=== PATIENT | female | born 1955 | race Caucasian/White ===

== ENCOUNTER 2021-04-30 14:52 | Emergency (ER) | payer MEDICARE, OTHER ==
--- NOTE | 2021-04-30 16:00 | ED Physician Documentation ---
PD HPI LOWER EXT INJURY - Stated complaint Stated Complaint: R ANKLE INJ - Chief complaint Chief Complaint: Trauma Ext - History obtained from History obtained from: Patient - History of Present Illness PD HPI LOW EXT INJURY LOCATION: Right, Ankle Type of injury: Twist (she was walking dog at [employer] and it pushed into her, causing inversion of ankle forcefully. Pain and snap at ankle and was angulated. She states medics straightened it for splinting. Denies other injury.) Where injury occurred: [place] Timing - onset: How many hours ago (1), Today Timing - details: Abrupt onset, Still present Improved by: Immobilization Worsened by: Moving, Palpating Associated symptoms: Swelling (has developed some swelling to it already.). No: Weakness, Numbness Contributing factors: No: Anticoagulated, Prior ortho surgery Similar symptoms before: Has not had sx before Recently seen: Not recently seen Review of Systems Constitutional: denies: Fever, Chills Nose: denies: Rhinorrhea / runny nose, Congestion Throat: denies: Sore throat Respiratory: denies: Cough Skin: denies: Abrasion (s), Laceration (s) Musculoskeletal: reports: Joint pain, Joint swelling (right ankle) Neurologic: denies: Focal weakness, Numbness PD PAST MEDICAL HISTORY - Past Medical History Cardiovascular: None Respiratory: None Neuro: None Endocrine/Autoimmune: None Musculoskeletal: None - Present Medications Home Medications: Ambulatory Orders Medication Instructions Recorded Confirmed HYDROcod/ACETAM 5/325 [Donovan 5/325] 1 ea PO Q6H PRN #18 tablet 04/30/21 Ibuprofen [Motrin] 600 mg PO TID PRN #25 tab 04/30/21 - Allergies Allergies/Adverse Reactions: Allergies Allergy/AdvReac Type Severity Reaction Status Date / Time No Known Drug Allergies Allergy Verified 04/30/21 14:57 PD ED PE NORMAL - Vitals Vital signs reviewed: Yes - General General: Alert and oriented X 3, No acute distress (not in distress, but does show pain response when ankle moves a little bit. BABS splint posteriorly on right splint. ), Well developed/nourished - HEENT HEENT: Atraumatic - Neck Neck: Supple, no meningeal sign, No bony TTP - Back Back: No spinal TTP - Derm Derm: Normal color, Warm and dry - Extremities Extremities: Other (right ankle with moderate swelling all around. Tender diffusely. Normal DP pulse and cap refill toes. Normal sensation and movement of toes. ) - Neuro Neuro: Alert and oriented X 3, No motor deficit, No sensory deficit, Normal speech Results - Vitals Vitals: Vital Signs - 24 hr 04/30/21 04/30/21 14:57 17:49 Temperature 36.5 C 36.5 C Heart Rate 81 80 Respiratory 16 16 Rate Blood Pressure 138/61 H 130/60 O2 Saturation 98 99 Oxygen O2 Source Room air - Rads (name of study) right ankle Radiology: Prelim report reviewed (trimalleolar fracture. Not dislocated. ), See rad report Procedures - Splint (location) right ankle Splint applied by: Tech Type of splint: Fiberglass, Posterior, Stirrup Other: Patient tolerated well, No complications, Neurovascular intact, Good alignment, Crutches provided PD MEDICAL DECISION MAKING - ED course Complexity details: reviewed results, re-evaluated patient, d/w data quality consultant (s/w Dr. Siddiqi who will see patient next week, Monday or Monday. Patient to call early Monday for appt time. ) Departure - Departure Disposition: Home, Self Care Clinical Impression: Trimalleolar fracture Qualifiers: Encounter type: initial encounter Fracture type: closed Laterality: right Qualified Code(s): S82.851A - Displaced trimalleolar fracture of right lower leg, initial encounter for closed fracture Condition: Stable Record reviewed to determine appropriate education?: Yes Instructions: ED Fx Ankle General Follow-Up: Ry Siddiqi MD [Provider Admit Priv/Credential] - Prescriptions: Ibuprofen [Motrin] 600 mg PO TID PRN #25 tab PRN Reason: Pain HYDROcod/ACETAM 5/325 [Donovan 5/325] 1 ea PO Q6H PRN #18 tablet PRN Reason: Pain Comments: Keep the splint in place and elevate ice and rest the ankle often to reduce swelling over the next several days. Crutches as for nonweightbearing. Call Dr. Siddiqi, orthopedics, Monday for an appointment. Tell them you were in the ER with an ankle fracture and Dr. Macias wants to see you early in the week, perhaps Monday or Monday. At that point they will reassess your splint and see if the swelling is down enough for changing the splint or cast and also discussed surgical options. Consider some anti-inflammatory such as ibuprofen or naproxen 3 times a day day over the next several days to week. Take with food. To that add Tylenol every 4-6 hours if needed for pain. Add hydrocodone every 4-6 hours if needed for worse pain. I transmitted your prescriptions to the pharmacy. I am prescribing a short course of narcotic pain medication for you. These are potentially dangerous and addictive medications that should be used carefully. These medications may constipate you. Take an qydk-mrx-acrmfeo stool softener such as docusate twice daily with plenty of water while taking these medications. If you go 24 hours without a bowel movement, take oxzj-wjb-[id number] MiraLAX, per package instructions. Do not drink or drive while taking these medications. If you received narcotic or sedating medications while in the emergency department do not drive for 24 hours. Store this medication in a safe, secure place and out of reach of children. It is a violation of federal law to give or sell this medication to another person or to use in a manner other than prescribed. The ED will not refill narcotic prescriptions, including prescriptions lost or stolen. You can dispose of unwanted medications at the [facility]'s office or at several pharmacies such as [facility]. Discharge Date/Time: 04/30/21 17:49
[2021-04-30] MEDS ORDERED: ACETAMINOPHEN 325 MG TABLET PO STA (16:30)
[2021-04-30] MEDS ORDERED: KETOROLAC 30 MG/ML VIAL IM STA (16:30)
--- NOTE | 2021-04-30 17:07 | XRAY Report ---
PROCEDURE: Ankle 3 View RT INDICATIONS: pain, fall TECHNIQUE: 3 views of the ankle were acquired. COMPARISON: None FINDINGS: Displaced and significantly distracted fracture of the medial malleolus extending into the mortise. Displaced, angulated, comminuted fracture of the distal fibular diaphysis and metadiaphysis extending into the tibial-fibular syndesmosis. Moderate sized ankle joint effusion. IMPRESSION: Fractures of the medial malleolus and distal fibula with intraocular and syndesmotic extension. Ortho pedic consultation recommended. Reviewed by: Mckinley Nolen MD on 04/30/2021 5:06 PM PST Approved by: Mckinley Nolen MD on 04/30/2021 5:06 PM PST Station ID: [id number]
[2021-04-30 17:50] VITALS: BP 130/60
== END 2021-04-30 17:49 | disposition home or self-care (01) ==
LOC: ED 14:52
DX: S82.851A Displaced trimalleolar fracture of right lower leg, initial encounter for closed fracture (principal); X50.1XXA Overexertion from prolonged static or awkward postures, initial encounter; Y93.K1 Activity, walking an animal; Y92.830 Public park as the place of occurrence of the external cause
CPT/HCPCS: 29515; 73610; 96372; 99283; A9270

== ENCOUNTER 2021-05-05 10:33 | Day surgery (SDC) | payer MEDICARE ==
[~2021-05-05 10:33] MED LIST: LIDOCAINE-MPF 2% 5 ML VIAL ONE; MIDAZOLAM 2 MG/2 ML VIAL ONE; PROPOFOL 200 MG/20 ML VIAL IVP ONE; fentaNYL 100 MCG/2 ML VIAL ONE
[2021-05-05] MEDS ORDERED: ROPIVACAINE 0.5% PF 20 ML AMPULE ONE (10:35)
[2021-05-05] MEDS ORDERED: TRANEXAMIC ACID 1,000 MG/10 ML VIAL ONE (10:40)
[2021-05-05] MEDS ORDERED: ACETAMINOPHEN 1,000 MG/100 ML 100 ML IV ONE (10:42)
[2021-05-05] MEDS ORDERED: CEFAZOLIN SODIUM IN 0.9 % NACL 2 GM/100 ML BAG IV ONE (10:42)
[2021-05-05] MEDS ORDERED: CELECOXIB 100 MG CAPSULE PO ONE (10:43)
[2021-05-05] MEDS ORDERED: LACTATED RINGERS 1,000 ML IV ONE ×2 (10:45→13:18)
[2021-05-05] MEDS ORDERED: oxyCODONE 5 MG TABLET PO PRN (11:19)
[2021-05-05] MEDS ORDERED: ATROPINE ABBOJECT 1 MG/10 ML SYRINGE IVP PRN (11:42)
[2021-05-05] MEDS ORDERED: ePHEDrine 50 MG/ML VIAL IVP PRN (11:42)
[2021-05-05] MEDS ORDERED: fentaNYL 100 MCG/2 ML VIAL IVP PRN (11:42)
[2021-05-05] MEDS ORDERED: NALOXONE 0.4 MG/ML VIAL IVP PRN (11:42)
[2021-05-05] MEDS ORDERED: METOCLOPRAMIDE 10 MG/2 ML VIAL IVP PRN (11:42)
[2021-05-05] MEDS ORDERED: ONDANSETRON 4 MG/2 ML VIAL IVP PRN (11:42)
[2021-05-05] MEDS ORDERED: MORPHINE 2 MG/ML CARPUJECT IVP PRN (11:42)
[2021-05-05] MEDS ORDERED: HYDROmorphone 0.5 MG/0.5 ML SYRINGE IVP PRN (11:42)
--- NOTE | 2021-05-05 11:42 | ANESTHESIA ---
Pre-Anesthesia VS, & Labs - Diagnosis R disal fibula fx - Procedure ORIF R distal fibula Vital Signs: Temp Pulse Resp BP Pulse Ox 36.4 C L 86 16 128/65 97 05/05/21 10:51 05/05/21 10:51 05/05/21 10:51 05/05/21 10:51 05/05/21 10:51 Height: 5 ft 4 in Weight (kg): 64 kg Body Mass Index: 24.2 BMI Classification: Healthy weight - NPO >8 hours - Is Patient ?: No - Lab Results Current Lab Results: Laboratory Tests 05/05/21 11:13: POC Whole Bld Glucose 96 Home Medications and Allergies Active Medications Oxycodone HCl (Oxycodone 5 Mg Tablet) 5 mg PO Q4HR PRN PRN Reason: PAIN Allergies/Adverse Reactions: Allergies Allergy/AdvReac Type Severity Reaction Status Date / Time No Known Drug Allergies Allergy Verified 04/30/21 14:57 Anes History & Medical History - Anesthetic History Anesthesia Complications: reports: No previous complications Family history of Anesthesia Complications: Denies Family history of Malignant Hyperthermia: Denies - Medical History Cardiovascular: reports: None Pulmonary: reports: None Gastrointestinal: reports: None Urinary: reports: None Neuro: reports: None Musculoskeletal: reports: None Endocrine/Autoimmune: reports: None Skin: reports: None - Surgical History Eyes Ears Nose Throat (EENT): reports: Tonsil/Adenoidectomy Exam General: Alert, Oriented x3, Cooperative Dental: Dentures full Upper, Dentures full Lower Neck Mobility: Normal Mallampati classification: II Thyromental Distance: 4-6 cm Respiratory: Lungs clear, Normal breath sounds, No respiratory distress Cardiovascular: Regular rate Neurological: Normal speech Mental/Cognitive Status: Alert/Oriented X3, Normal for patient Cognitive Status: Within normal limits Plan Anesthesia Type: General, Popliteal Block Regional Block: Per Surgeon's request for Post Op pain control Consent for Procedure(s) Verified and Reviewed: Yes Code Status: Attempt Resuscitation ASA classification: 2-Mild systemic disease Is this case an emergency?: No
[2021-05-05] MEDS ORDERED: LACTATED RINGERS 1,000 ML IV SCH (12:00)
[2021-05-05] MEDS ORDERED: LIDOCAINE 1% 50 ML MDV SUBQ ONE ×2 (12:11)
[2021-05-05] MEDS ORDERED: LIDOCAINE-MPF 1% 30 ML VIAL ONE (12:13)
[2021-05-05] MEDS ORDERED: ONDANSETRON 4 MG/2 ML VIAL ONE ×2 (12:37→13:47)
[2021-05-05] MEDS ORDERED: PROPOFOL 200 MG/20 ML VIAL IVP ONE (12:48)
--- NOTE | 2021-05-05 13:01 | OPERATIVE REPORT ---
Operative Report - General Procedure Date: 05/05/21 Planned Procedure: Open reduction internal fixation right ankle fracture Pre-Op Diagnosis: Displaced, unstable right ankle fracture, trimalleolar, closed Procedure Performed: Open reduction internal fixation lateral malleolusUtilizing Arthrex fibular beni locked distally and proximally. Post Op Diagnosis: Same as preoperative diagnosis - Procedure Note Primary Surgeon: Ry Siddiqi MD Secondary Surgeon: Luis CAVAZOS Anesthesia Provider: Raphael Nicole CRNA Anesthesia Technique: General LMA, Regional block Estimated Blood Loss (mL): 5 Indications: This is a relatively active 65-year-old woman who sustained a closed displaced right ankle fracture when walking her dog at the [employer]. She had a twisting injury associated with the fall. She was seen in the emergency room where a splint was applied, elevation and crutches were recommended. She had follow-up in our office where she was found to have a closed, displaced unstable fracture of the right ankle. The fracture of the lateral malleolus was comminuted and displaced and was at the level of the ankle mortise and slightly more proximal. The medial malleolus fracture was transverse, displaced and was located at the joint line. The posterior malleolar fragment was relatively small, difficult to be certain on the lateral view.The ankle mortise was unstable. Findings: The primary fracture was the fibula and medial malleolus. I did not definitely ascertain a definite posterior malleolus fracture. The ankle mortise was unstable before fixation of right ankle Complications: None - Other Other Information/Narrative: The patient had received a popliteal block to the right leg. She was brought to the operating room and placed in a supine position with the right leg over a foam ramp. A pneumatic tourniquet was applied to the proximal right thigh but was not utilized. A bump was placed beneath the right buttock to facilitate internal rotation of the right leg. The right leg was prepped and draped in a sterile manner in the usual fashion. A timeout procedure was performed by the entire operating room team and all were in agreement. A towel bump was placed just above the ankle to facilitate traction and internal rotation to help reduce the fracture. The Arthrex fibular beni was utilized. An incision was made about a centimeter distal to the tip of the lateral malleolus and was about 1.5 cm in length. A drill guide and a K wire were then inserted from the tip of the lateral malleolus, across the fracture into the proximal fibular canal. The C-arm image intensifier was utilized for biplanar imaging. The C arm had been covered with sterile drape. The fracture and guidepin seem to align. The entry reamer was then utilized 6.2 mm and then the canal reamer with 3.1 and 3.9 mm reamer. The final reamer allowed insertion of a 3.8 mm beni by 130 mm. The guide was attached to the beni and the beni was impacted by hand. I attempted to countersink the end of the beni and the beni tip was verified using a K wire and the guide. 2 K wires were inserted to fixate the distal fragment to allow for some traction utilizing the beni. The bein rotation was set, reduction was held and the proximal locking mechanism was activated to deploy the tines. Distal 2.7 mm locking screws were inserted through stab incisions. There were 2 distal locking screws placed from lateral to medial and one from anterior to posterior. Stressing of the ankle mortise was done with external rotation and there is seem to be intact ankle mortise without widening of the distal syndesmosis. Final x-rays were obtained and show satisfactory alignment of the ankle mortise and fracture. The medial malleolar fracture aligned well and was not addressed surgically. The incisions were closed with interrupted 4- 0 nylon, simple sutures, Xeroform, gauze well-padded short leg fiberglass splint. A minimally invasive procedure was utilized because her history of peripheral vascular disease most likely secondary to many years of cigarette smoking. A physician speech correction assistant was utilized to help with reduction, insertion of internal fixation, wound closure and splint application. She received 2 g of Ancef intravenously and tolerated the procedure well
--- NOTE | 2021-05-05 13:55 | XRAY Report ---
PROCEDURE: OR C-Arm Procedure INDICATIONS: FX FIBULA TECHNIQUE: 2 intraoperative fluoroscopic images of right ankle were obtained. COMPARISON: Ankle radiograph dated 04/30/2021. FINDINGS: Intraoperative fluoroscopic images shows internal fixation of previously noted comminuted distal fibu lar shaft fracture. Fracture of medial malleolus is also noted. Total fluoroscopy time is 28 seconds. IMPRESSION: Fluoroscopy guidance was provided intraoperatively for ORIF of distal fibular shaft. Reviewed by: Moises Grant MD on 05/05/2021 1:54 PM PST Approved by: Moises Grant MD on 05/05/2021 1:54 PM PST Station ID: [id number]
[2021-05-05 14:35] VITALS: BP 126/60
--- NOTE | 2021-05-05 18:13 | ANESTHESIA POST OP EVALUATION ---
Anesthesia Post Eval - Post Anesthesia Eval Vitals: Last Vital Signs Temp 36.7 C 05/05/21 14:34 Pulse 67 05/05/21 14:34 Resp 13 05/05/21 14:34 BP 126/60 05/05/21 14:34 Pulse Ox 100 05/05/21 14:34 CV Function Including HR & BP: Stable Pain Control: Satisfactory Nausea & Vomiting: Negative Mental Status: Baseline Respiratory Status: Airway Patent Hydration Status: Satisfactory Anesthesia Complications: None
== END 2021-05-05 10:34 | disposition home or self-care (01) ==
LOC: SDS 10:33
PROVIDERS: ATTEND Orthopaedic Surgery
DX: S82.851A Displaced trimalleolar fracture of right lower leg, initial encounter for closed fracture (principal); W54.1XXA Struck by dog, initial encounter; X50.1XXA Overexertion from prolonged static or awkward postures, initial encounter; Y92.830 Public park as the place of occurrence of the external cause; I73.9 Peripheral vascular disease, unspecified; Z87.891 Personal history of nicotine dependence
CPT/HCPCS: 27792; C1713; J0131; J0690; J7120

== ENCOUNTER 2021-06-29 07:57 | Outpatient (CLI) | payer MEDICARE ==
--- NOTE | 2021-06-29 17:47 | XRAY Report ---
PROCEDURE: Ankle 3 View RT INDICATIONS: ANKLE FRACTURE TECHNIQUE: 3 views of the ankle were acquired. COMPARISON: 12 since . FINDINGS: Bones: Postsurgical changes compatible with ORIF of distal fibular fracture noted. Intramedullary beni with [address] screws in place. There is near-anatomic alignment following ORIF. Medial malle olus fracture is in near-anatomic alignment. Ankle mortise is normally aligned. No suspicious bony l esions. Soft tissues: No tibiotalar joint effusion. Achilles tendon appears normal. IMPRESSION: Expected postsurgical change for ORIF of distal right fibular fracture. Medial malleolus fracture in near anatomic alignment. Reviewed by: Alba Santos MD, PhD on 06/29/2021 5:46 PM PST Approved by: Alba Santos MD, PhD on 06/29/2021 5:46 PM PST Station ID: [id number]
== END 2021-06-29 07:58 | disposition home or self-care (01) ==
LOC: DI.WOS 07:57
PROVIDERS: ATTEND Physician Assistant
DX: S82.831D Other fracture of upper and lower end of right fibula, subsequent encounter for closed fracture with routine healing (principal); S82.51XD Displaced fracture of medial malleolus of right tibia, subsequent encounter for closed fracture with routine healing

== ENCOUNTER 2021-07-27 08:00 | Outpatient (CLI) | payer MEDICARE ==
--- NOTE | 2021-07-27 17:02 | XRAY Report ---
PROCEDURE: Ankle 3 View RT INDICATIONS: ANKLE ORIF NEW ANTERIOR ANKLE PAIN TECHNIQUE: 3 views of the ankle were acquired. COMPARISON: Right ankle radiographs 06/29/2021, 04/30/2021. FINDINGS: Bones: Distal fibula intramedullary beni and screw fixation is unchanged. Prior malleolar fractures. Stable alignment. No suspicious bony lesions. Soft tissues: Heterogeneous appearance of the soft tissues could be due to edema. No tibiotalar join t effusion. Achilles tendon appears normal. IMPRESSION: Stable appearance of the prior fractures and ORIF. Reviewed by: Bogdan Harris MD on 07/27/2021 4:01 PM MICHELE Approved by: Bogdan Harris MD on 07/27/2021 4:01 PM MICHELE Station ID: [id number]
== END 2021-07-27 23:59 ==
LOC: DI.WOS 08:00
PROVIDERS: ATTEND Physician Assistant
DX: S82.851D Displaced trimalleolar fracture of right lower leg, subsequent encounter for closed fracture with routine healing (principal)

== ENCOUNTER 2021-08-27 06:00 | Outpatient (CLI) | payer MEDICARE ==
--- NOTE | 2021-08-30 14:47 | XRAY Report ---
PROCEDURE: Ankle 3 View RT INDICATIONS: ANKLE FRACTURE TECHNIQUE: 3 views of the ankle were acquired. COMPARISON: 07/27/2021 and 06/29/2021. FINDINGS: Bones: Post-ORIF changes are again seen in distal fibular shaft. No gross hardware loosening or fail ure. Interval further healing at distal fibular shaft fracture site is seen. Old fracture involving m edial malleolus is again seen and unchanged. No new fracture or dislocation. Ankle mortise is normall y aligned. No suspicious bony lesions. Soft tissues: No tibiotalar joint effusion. Achilles tendon appears normal. IMPRESSION: Interval further healing at distal fibular shaft fracture site. Anatomic ankle alignment . Old fracture of medial malleolus. No new fracture or dislocation. Reviewed by: Moises Grant MD on 08/30/2021 2:45 PM PDT Approved by: Moises Grant MD on 08/30/2021 2:45 PM PDT Station ID: [id number]
== END 2021-08-27 23:59 | disposition home or self-care (01) ==
LOC: DI.WOS 06:00
PROVIDERS: ATTEND Physician Assistant
DX: S82.851D Displaced trimalleolar fracture of right lower leg, subsequent encounter for closed fracture with routine healing (principal)

== ENCOUNTER 2021-09-28 06:00 | Outpatient (CLI) | payer MEDICARE ==
--- NOTE | 2021-09-28 18:21 | XRAY Report ---
PROCEDURE: Ankle 3 View RT INDICATIONS: ANKLE FX TECHNIQUE: 3 views of the ankle were acquired. COMPARISON: X-ray ankle 08/27/2021 FINDINGS: Bones: Femoral fixation is present. Hardware is intact without evidence of hardware fracture or perip rosthetic loosening. Fracture lucencies within the fibula remain present, although slightly less prom inent with stable alignment. Ankle mortise is normally aligned. No suspicious bony lesions. Old med ial malleolar fracture. 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 Soft tissues: No tibiotalar joint effusion. Achilles tendon appears normal. IMPRESSION: ORIF of the distal fibula with healing fracture lucencies. Reviewed by: Deya Gonzalez MD on 09/28/2021 6:19 PM PDT Approved by: Deya Gonzalez MD on 09/28/2021 6:19 PM PDT Station ID: [id number]
== END 2021-09-28 23:59 | disposition home or self-care (01) ==
LOC: DI.WOS 06:00
PROVIDERS: ATTEND Physician Assistant
DX: S82.851D Displaced trimalleolar fracture of right lower leg, subsequent encounter for closed fracture with routine healing (principal)

== ENCOUNTER 2023-01-02 08:00 | Outpatient (CLI) | payer MEDICARE | END 2023-01-02 23:59 | disposition home or self-care (01) | LOC: LAB.S 08:00 | PROVIDERS: ATTEND Physician Assistant | DX: R50.9 Fever, unspecified (principal); Z20.822 Contact with and (suspected) exposure to COVID-19 ==

== ENCOUNTER 2023-01-07 08:00 | Outpatient (CLI) | payer MEDICARE ==
--- NOTE | 2023-01-07 20:02 | XRAY Report ---
PROCEDURE: Chest 2 View X-Ray INDICATIONS: FATIGUE TECHNIQUE: 2 views of the chest were acquired. COMPARISON: None. FINDINGS: Surgical changes and devices: None. Lungs and pleura: No pleural effusions or pneumothorax. Lungs are clear, yet hyperexpanded. Mediastinum: The aorta is prominent and tortuous. The cardiac contours are within normal limits. Bones and chest wall: No suspicious bony lesions. Age-appropriate degenerative changes are seen. T here is accentuated thoracic kyphosis. Overlying soft tissues appear unremarkable. IMPRESSION: Hyperexpanded lungs are seen, without an acute cardiopulmonary abnormality seen. Reviewed by: Nimesh Munroe MD on 01/07/2023 7:00 PM MICHELE Approved by: Nimesh Munroe MD on 01/07/2023 7:00 PM NVLILIANA Station ID: [id number]
== END 2023-01-07 23:59 | disposition home or self-care (01) ==
LOC: DI.S 08:00
PROVIDERS: ATTEND Emergency Medicine
DX: R53.83 Other fatigue (principal)

== ENCOUNTER 2023-01-13 08:00 | Outpatient (CLI) | payer MEDICARE ==
[2023-01-13 15:18] LABS: BILIRUBIN,URINE NEGATIVE (NEGATIVE); GLUCOSE, URINE (UA) NEGATIVE (NEGATIVE); KETONES,URINE (UA) NEGATIVE (NEGATIVE); LEUKOCYTE ESTERASE, URINE NEGATIVE (NEGATIVE); NITRITE,URINE NEGATIVE (NEGATIVE); OCCULT BLOOD,URINE NEGATIVE (NEGATIVE); PH,URINE 5.5 PH (5.0-7.5); PROTEIN,URINE TRACE mg/dL (NEGATIVE); UROBILINOGEN,URINE 0.2 (NORMAL) E.U./dL (NORMAL)
[2023-01-13 15:33] LABS: CLARITY,URINE HAZY (CLEAR)
[2023-01-13 16:21] LABS: WBC,URINE 0-3 /HPF (0-5)
[2023-01-13 16:22] LABS: BACTERIA,URINE None Seen /HPF (None Seen); RBC,URINE 0-5 /HPF (0-5); SQUAMOUS EPITHELIAL CELL,UR RARE Squamous (<= Few)
== END 2023-01-13 23:59 | disposition home or self-care (01) ==
LOC: LAB.S 08:00
PROVIDERS: ATTEND Physician Assistant
DX: R50.9 Fever, unspecified (principal); R53.83 Other fatigue
CPT/HCPCS: 81001; 87086

== ENCOUNTER 2023-01-18 10:33 | Emergency (ER) | payer MEDICARE ==
--- NOTE | 2023-01-18 11:07 | ED Physician Documentation ---
PD HPI ABD PAIN - Stated complaint Stated Complaint: CHILLS,FEVER,NAUSEA - Chief complaint Chief Complaint: Resp - History obtained from History obtained from: Patient - History of Present Illness Timing - onset: How many months ago (1) Timing - duration: Months (1) Timing - details: Gradual onset (The patient describes low-grade fevers and chills regularly over the last month. She denies cough or trouble breathing per se. She has at times had upper abdominal discomfort. She had outpatient chest x-ray and some blood tests and urine test without any noted infections. COVID test was negative), Still present, Waxing and waning Quality: Cramping, Aching Location: RUQ, Epigastric Radiation: No: Left flank, Right flank Improved by: No: Eating Worsened by: No: Eating Associated symptoms: Fever. No: Nausea, Vomiting Similar symptoms before: Has not had sx before Recently seen: Not recently seen Review of Systems Constitutional: reports: Fever, Chills, Myalgias Nose: denies: Rhinorrhea / runny nose, Congestion Throat: denies: Sore throat Respiratory: denies: Cough PD PAST MEDICAL HISTORY - Past Medical History Cardiovascular: None Respiratory: None Neuro: None Endocrine/Autoimmune: None GI: None : None Psych: None Musculoskeletal: None Derm: None - Past Surgical History HEENT: Tonsil/Adenoidectomy - Present Medications Home Medications: Ambulatory Orders Medication Instructions Recorded Confirmed HYDROcod/ACETAM 5/325 [[place] 5/325] 1 ea PO Q6H PRN #18 tablet 04/30/21 Ibuprofen [Motrin] 600 mg PO TID PRN #25 tab 04/30/21 oxyCODONE [Roxicodone] 5 mg PO Q4-6H #30 tablet 05/05/21 Pantoprazole [Protonix] 40 mg PO DAILY 30 Days #30 tablet 01/18/23 - Allergies Allergies/Adverse Reactions: Allergies Allergy/AdvReac Type Severity Reaction Status Date / Time No Known Drug Allergies Allergy Verified 01/18/23 10:56 PD ED PE NORMAL - Vitals Vital signs reviewed: Yes - General General: Alert and oriented X 3, Well developed/nourished - HEENT HEENT: Moist mucous membranes, Pharynx benign - Neck Neck: Supple, no meningeal sign, No adenopathy - Cardiac Cardiac: RRR, No murmur - Respiratory Respiratory: Clear bilaterally - Abdomen Abdomen: Normal bowel sounds, Soft, Non distended, No organomegaly, Other (midly tender periumbilical to epigastric area without guarding nor percussion tenderness. ) - Female Female : Deferred - Rectal Rectal: Deferred - Back Back: No CVA TTP - Derm Derm: Normal color, Warm and dry - Extremities Extremities: No edema, No calf tenderness / cord - Neuro Neuro: Alert and oriented X 3, No motor deficit, Normal speech Results - Vitals Vitals: Oxygen O2 Source Room air - Labs Labs: Microbiology 01/18/23 12:01 Blood Culture - Preliminary Blood - Right Hand NO GROWTH AFTER 1 DAY 01/18/23 11:55 Blood Culture - Preliminary Blood - Left Arm NO GROWTH AFTER 1 DAY Laboratory Tests 01/18/23 01/18/23 01/18/23 11:10 11:16 11:16 WBC 10.2 RBC 4.43 Hgb 12.4 Hct 39.4 MCV 88.9 MCH 28.0 MCHC 31.5 L RDW 12.8 Plt Count 698 H MPV 8.9 Neut # (Auto) 8.0 H Lymph # (Auto) 1.3 L [place] # (Auto) 0.7 Eos # (Auto) 0.1 Baso # (Auto) 0.1 Absolute Nucleated RBC 0.00 Nucleated RBC % 0.0 Sodium 136 Potassium 3.9 Chloride 99 L Carbon Dioxide 27 Anion Gap 10.0 BUN 11 Creatinine 0.6 Estimated GFR (MDRD) 100 Glucose 96 Calcium 10.3 Total Bilirubin 0.4 AST 16 ALT 13 Alkaline Phosphatase 109 Total Protein 7.7 Albumin 3.7 Globulin 4.0 Albumin/Globulin Ratio 0.9 L Lipase 12 Urine Color YELLOW Urine Clarity CLEAR Urine pH 6.0 Ur Specific [place] 1.025 Urine Protein NEGATIVE Urine Glucose (UA) NEGATIVE Urine Ketones 15 H Urine Occult Blood NEGATIVE Urine Nitrite NEGATIVE Urine Bilirubin NEGATIVE Urine Urobilinogen 0.2 (NORMAL) Ur Leukocyte Esterase NEGATIVE Ur Microscopic Review NOT INDICATED Urine Culture Comments NOT INDICATED Nasal Adenovirus (PCR) Nasal B. parapertussis DNA (PCR) Nasal Coronavir 229E PCR Nasal Coronavir HKU1 PCR Nasal Coronavir NL63 PCR Nasal Coronavir OC43 PCR Nasal Enterovir/Rhinovir PCR Nasal Influenza B PCR Nasal Influenza A PCR Nasal Parainfluen 1 PCR Nasal Parainfluen 2 PCR Nasal Parainfluen 3 PCR Nasal Parainfluen 4 PCR Nasal RSV (PCR) Nasal B.pertussis DNA PCR Nasal C.pneumoniae (PCR) Kelvin Human Metapneumo PCR Nasal M.pneumoniae (PCR) Nasal SARS-CoV-2 (PCR) 01/18/23 12:05 WBC RBC Hgb Hct MCV MCH MCHC RDW Plt Count MPV Neut # (Auto) Lymph # (Auto) [place] # (Auto) Eos # (Auto) Baso # (Auto) Absolute Nucleated RBC Nucleated RBC % Sodium Potassium Chloride Carbon Dioxide Anion Gap BUN Creatinine Estimated GFR (MDRD) Glucose Calcium Total Bilirubin AST ALT Alkaline Phosphatase Total Protein Albumin Globulin Albumin/Globulin Ratio Lipase Urine Color Urine Clarity Urine pH Ur Specific [place] Urine Protein Urine Glucose (UA) Urine Ketones Urine Occult Blood Urine Nitrite Urine Bilirubin Urine Urobilinogen Ur Leukocyte Esterase Ur Microscopic Review Urine Culture Comments Nasal Adenovirus (PCR) NOT DETECTED Nasal B. parapertussis DNA (PCR) NOT DETECTED Nasal Coronavir 229E PCR NOT DETECTED Nasal Coronavir HKU1 PCR NOT DETECTED Nasal Coronavir NL63 PCR NOT DETECTED Nasal Coronavir OC43 PCR NOT DETECTED Nasal Enterovir/Rhinovir PCR NOT DETECTED Nasal Influenza B PCR NOT DETECTED Nasal Influenza A PCR NOT DETECTED Nasal Parainfluen 1 PCR NOT DETECTED Nasal Parainfluen 2 PCR NOT DETECTED Nasal Parainfluen 3 PCR NOT DETECTED Nasal Parainfluen 4 PCR NOT DETECTED Nasal RSV (PCR) NOT DETECTED Nasal B.pertussis DNA PCR NOT DETECTED Nasal C.pneumoniae (PCR) NOT DETECTED Kelvin Human Metapneumo PCR NOT DETECTED Nasal M.pneumoniae (PCR) NOT DETECTED Nasal SARS-CoV-2 (PCR) NOT DETECTED - Rads (name of study) abd/pelvic CT Relevant Findings:: Prelim report reviewed (no acute process. prominent colonic stool. diverticula without diverticulitis. ), EMP independent interpretation of test PD Medical Decision Making - ED course Complexity details: reviewed results (no noted abnormality to accute for her persistent illness/fevers. ), considered differential (here with 1 month of persistent fevers and malaise. Has had some upper abd pains. Negative covid test, UA and chest xray at clinic. ), d/w patient Departure - Departure Disposition: 01 Home, Self Care Clinical Impression: Persistent fever, Upper abdominal pain Condition: Stable Record reviewed to determine appropriate education?: Yes Follow-Up: Adi Vincent MD [Primary Care Provider] - Prescriptions: Pantoprazole [Protonix] 40 mg PO DAILY 30 Days #30 tablet Comments: Your urine test is without any signs of infection. The viral PCR panel did not show any major viruses currently active. It is possible you may have persistent immune response to an initial illness a month ago. Your blood tests here show normal white count and blood count. Your chemistry panel has normal electrolytes and kidney function. Your liver enzymes are actually normal today on blood testing. The CT scan did not show any obvious acute abnormality to account for pain or fevers. However some processes such as the stomach lining/gastritis or ulcer do not show up well on blood tests or CT scan. We can presume treating that with some acid reducing medicine such as pantoprazole daily for a month. Add Tylenol every 4-6 hours if needed for pain. Follow-up with your primary care regarding further evaluation. For your upper abdominal pain, I would suggest some acid reducing medicine such as pantoprazole daily for a month. Forms: PCP List Discharge Date/Time: 01/18/23 15:31
--- OUTSIDE RECORDS SUMMARY | 2023-01-18 11:11 | EXTERNAL MEDICAL SUMMARY RPT | Continuity of Care Document ---
Author Name Unknown Address [address] [place] [address] Phone Organization [facility] Address [address] [place] [address] Phone Care Team Providers Care Physical Therapy Professor Name Role Phone Unavailable Unavailable Unavailable Laly Acevedo, Solitario Unavailable Unavailable Josué Concepcion, Naldo Unavailable Unavailable [place] Patient Registrar, Maggie Unavailable Unavailable [place] Patient Registrar, Maggie Unavailable Unavailable [place] Patient Registrar, Maggie Unavailable Unavailable [place] Patient Registrar Ii, Abeba Unavailab le Unavailable [place] Patient Registrar Iii, Cheri Unavailab le Unavailable Medications date description facility 2023-01-07 00:00 doxycycline hyclate [facility] 2023-01-07 00:00 doxycycline hyclate [facility] 2023-01-07 00:00 doxycycline hyclate [facility] 2023-01-07 00:00 doxycycline hyclate [facility] 2023-01-07 00:00 doxycycline hyclate [facility] 2023-01-07 00:00 doxycycline hyclate [facility] 2023-01-07 00:00 doxycycline hyclate [facility] 2023-01-07 00:00 doxycycline hyclate [facility] 2023-01-07 00:00 doxycycline hyclate [facility] 2023-01-02 00:00 No Known Medications [facility] 2023-01-02 00:00 No Known Medications [facility] 2023-01-02 00:00 No Known Medications [facility] 2023-01-07 00:00 doxycycline hyclate [facility] 2023-01-07 00:00 doxycycline hyclate [facility] 2023-01-07 00:00 doxycycline hyclate [facility] Problems date description facility 2023-01-02 00:00 Unspecified viral infection [facility] 2023-01-02 00:00 Unspecified viral infection [facility] 2023-01-02 00:00 Unspecified viral infection [facility] 2023-01-02 00:00 Unspecified viral infection [facility] 2023-01-02 00:00 Unspecified viral infection [facility] 2023-01-02 00:00 Unspecified viral infection [facility] 2023-01-02 00:00 Unspecified viral infection [facility] 2023-01-02 00:00 Fever [facility] 2023-01-02 00[facility]00 Fever [facility] 2023-01-02 00:00 Fever [facility] 2023-01-02 00:00 Fever [facility] 2023-01-02 00:00 Fever [facility] 2023-01-02 00:00 Fever [facility] 2023-01-02 00:00 Fever [facility] 2023-01-02 00:00 Viral syndrome [facility] 2023-01-02 00:00 Viral syndrome [facility] 2023-01-02 00:00 Viral syndrome [facility] 2023-01-02 00:00 Viral syndrome [facility] 2023-01-02 00:00 Viral syndrome [facility] 2023-01-02 00:00 Viral syndrome [facility] 2023-01-02 00:00 Viral syndrome [facility] 2023-01-02 00:00 Other viral agents a s the cause of diseases classified elsewhere [facility] 2023-01-02 00:00 Other viral agents a s the cause of diseases classified elsewhere [facility] 2023-01-02 00:00 Other viral agents a s the cause of diseases classified elsewhere [facility] 2023-01-02 00:00 Other viral agents a s the cause of diseases classified elsewhere [facility] 2023-01-02 00:00 Other viral agents a s the cause of diseases classified elsewhere [facility] 2023-01-02 00:00 Other viral agents a s the cause of diseases classified elsewhere [facility] 2023-01-02 00:00 Other viral agents a s the cause of diseases classified elsewhere [facility] 2023-01-02 00:00 Fever, unspecified [facility] 2023-01-02 00:00 Fever, unspecified [facility] 2023-01-02 00:00 Fever, unspecified [facility] 2023-01-02 00:00 Fever, unspecified [facility] 2023-01-02 00:00 Fever, unspecified [facility] 2023-01-02 00:00 Fever, unspecified [facility] 2023-01-02 00:00 Fever, unspecified [facility] 2023-01-07 00:00 Primary atypical int erstitial pneumonia [facility] 2023-01-07 00:00 Primary atypical int erstitial pneumonia [facility] 2023-01-07 00:00 Primary atypical int erstitial pneumonia [facility] 2023-01-07 00:00 Pneumonia, organism unspecified [facility] 2023-01-07 00:00 Pneumonia, organism unspecified [facility] 2023-01-07 00:00 Pneumonia, organism unspecified [facility] 2023-01-07 00:00 Other malaise and fatigue [facility] 2023-01-07 00:00 Other malaise and fatigue [facility] 2023-01-07 00:00 Other malaise and fatigue [facility] 2023-01-07 00:00 Fatigue [facility] 2023-01-07 00:00 Fatigue [facility] 2023-01-07 00:00 Fatigue [facility] 2023-01-07 00:00 Other specified inte rstitial pulmonary diseases [facility] 2023-01-07 00:00 Other specified inte rstitial pulmonary diseases [facility] 2023-01-07 00:00 Other specified inte rstitial pulmonary diseases [facility] 2023-01-07 00:00 Other fatigue [facility] 2023-01-07 00:00 Other fatigue [facility] 2023-01-07 00:00 Other fatigue [facility] 2023-01-13 00:00 Occipital headache [facility] 2023-01-13 00:00 Headache [facility] 2023-01-13 00:00 Headache, unspecified [facility] Procedures date description facility 2023-01-02 00:00 Visit Code Hold [facility] 2023-01-02 00:00 Visit Code Hold [facility] 2023-01-02 00:00 Visit Code Hold [facility] 2023-01-02 00:00 Visit Code Hold [facility] 2023-01-02 00:00 Visit Code Hold [facility] 2023-01-02 00:00 Visit Code Hold [facility] 2023-01-02 00:00 Visit Code Hold [facility] 2023-01-07 00:00 Visit Code Hold [facility] 2023-01-07 00:00 Visit Code Hold [facility] 2023-01-07 00:00 Visit Code Hold [facility] 2023-01-13 00:00 Visit Code Hold [facility] 2023-01-02 00:00 POC SARCOV2&INF A&B&RSV AMP PB [facility] 2023-01-02 00:00 POC SARCOV2&INF A&B&RSV AMP PB [facility] 2023-01-02 00:00 POC SARCOV2&INF A&B&RSV AMP PB [facility] 2023-01-02 00:00 POC SARCOV2&INF A&B&RSV AMP PB [facility] 2023-01-02 00:00 POC SARCOV2&INF A&B&RSV AMP PB [facility] 2023-01-02 00:00 POC SARCOV2&INF A&B&RSV AMP PB [facility] Results/Labs test date facility value unit notes Social History date description facility 2023-01-02 00:00 Former smoker [facility] 2023-01-02 00:00 Former smoker [facility] 2023-01-02 00:00 Former smoker [facility] 2023-01-02 00:00 Former smoker [facility] 2023-01-02 00:00 Former smoker [facility] 2023-01-02 00:00 Former smoker [facility] 2023-01-07 00:00 Former smoker [facility] 2023-01-07 00:00 Former smoker [facility] 2023-01-07 00:00 Former smoker [facility] 2023-01-13 00:00 Former smoker [facility] Vital Signs date measurement value units 2023-01-02 00:00 BMI 22.74 kg/m2 2023-01-02 00:00 BP_diastolic 78 mmHg 2023-01-02 00:00 BP_systolic 147 mmHg 2023-01-02 00:00 heart_rate 94 /min 2023-01-02 00:00 height_metric 162.56 cm 2023-01-02 00:00 height_standard 64 in 2023-01-02 00:00 respiration_rate 17 /min 2023-01-02 00:00 temperature_metric 37.28 C 2023-01-02 00:00 temperature_standard 99.1 F 2023-01-02 00:00 weight_metric 59.87 kg 2023-01-02 00:00 weight_standard 132 lb 2023-01-07 00:00 BMI 23.26 kg/m2 2023-01-07 00:00 BP_diastolic 66 mmHg 2023-01-07 00:00 BP_systolic 119 mmHg 2023-01-07 00:00 height_metric 162.56 cm 2023-01-07 00:00 height_standard 64 in 2023-01-07 00:00 weight_metric 61.23 kg 2023-01-07 00:00 weight_standard 135 lb 2023-01-13 00:00 BMI 23.26 kg/m2 2023-01-13 00:00 BP_diastolic 65 mmHg 2023-01-13 00:00 BP_systolic 105 mmHg 2023-01-13 00:00 heart_rate 100 /min 2023-01-13 00:00 height_metric 162.56 cm 2023-01-13 00:00 height_standard 64 in 2023-01-13 00:00 respiration_rate 18 /min 2023-01-13 00:00 temperature_metric 37.22 C 2023-01-13 00:00 temperature_standard 99 F 2023-01-13 00:00 weight_metric 61.23 kg 2023-01-13 00:00 weight_standard 135 lb
[2023-01-18 11:18] LABS: BASOPHILS # (AUTO) 0.1 10^3/uL (0.0-0.1); BASOPHILS % (AUTO) 0.8 %; EOSINOPHILS # (AUTO) 0.1 10^3/uL (0.0-0.7); EOSINOPHILS % (AUTO) 0.8 %; HCT - HEMATOCRIT 39.4 % (37.0-47.0); HGB - HEMOGLOBIN 12.4 g/dL (12.0-16.0); LYMPHOCYTES # (AUTO) 1.3 10^3/uL (1.5-3.5); LYMPHOCYTES % (AUTO) 12.9 %; MEAN CORPUSCULAR HGB CONC 31.5 g/dL (32.0-36.0); MEAN CORPUSCULAR VOLUME 88.9 fL (81.0-99.0); MEAN PLATELET VOLUME 8.9 fL (7.9-10.8); MONOCYTES # (AUTO) 0.7 10^3/uL (0.0-1.0); MONOCYTES % (AUTO) 6.5 %; NEUTROPHILS % (AUTO) 78.3 %; PLT - PLATELET COUNT 698 10^3/uL (130-450); RED BLOOD COUNT 4.43 10^6/uL (4.20-5.40); RED CELL DISTRIBUTION WIDTH 12.8 % (12.0-15.0); WHITE BLOOD COUNT 10.2 x10^3/uL (4.8-10.8)
[2023-01-18 11:28] LABS: GLUCOSE, URINE (UA) NEGATIVE (NEGATIVE); KETONES,URINE (UA) 15 mg/dL (NEGATIVE); LEUKOCYTE ESTERASE, URINE NEGATIVE (NEGATIVE); NITRITE,URINE NEGATIVE (NEGATIVE); OCCULT BLOOD,URINE NEGATIVE (NEGATIVE); PROTEIN,URINE NEGATIVE (NEGATIVE); UROBILINOGEN,URINE 0.2 (NORMAL) E.U./dL (NORMAL)
[2023-01-18 11:29] LABS: CLARITY,URINE CLEAR (CLEAR)
[2023-01-18 11:33] LABS: BILIRUBIN,URINE NEGATIVE (NEGATIVE); ICTOTEST,URINE NEGATIVE
[2023-01-18 11:34] LABS: ALBUMIN 3.7 g/dL (3.2-5.5); ALBUMIN/GLOBULIN RATIO 0.9 (1.0-2.2); BILIRUBIN,TOTAL 0.4 mg/dL (0.2-1.0); CALCIUM 10.3 mg/dL (8.5-10.3); CREATININE 0.6 mg/dL (0.6-1.3); POTASSIUM 3.9 mmol/L (3.5-4.5); TOTAL PROTEIN 7.7 g/dL (6.4-8.9)
[2023-01-18 13:21] LABS: B. PARAPERTUSSIS- RESP PCR PAN NOT DETECTED; B. PERTUSSIS- RESP PCR PANEL NOT DETECTED; C. PNEUMONIAE- RESP PCR PANEL NOT DETECTED; CORONAVIRUS 229E-RESP PCR NOT DETECTED; CORONAVIRUS HKU1-RESP PCR NOT DETECTED; CORONAVIRUS NL63-RESP PCR NOT DETECTED; CORONAVIRUS OC43-RESP PCR NOT DETECTED; HUMAN METAPNEUMOVIRUS NOT DETECTED; INFLUENZA A- RESP PCR PANEL NOT DETECTED; INFLUENZA B - RESP PCR PANEL NOT DETECTED; M. PNEUMONIAE- RESP PCR PANEL NOT DETECTED; PARAINFLUENZA VIRUS 1 NOT DETECTED; PARAINFLUENZA VIRUS 2 NOT DETECTED; PARAINFLUENZA VIRUS 3 NOT DETECTED; PARAINFLUENZA VIRUS 4 NOT DETECTED; RHINOVIRUS/ENTEROVIRUS NOT DETECTED; RSV- RESP PCR PANEL NOT DETECTED; SARS-CoV-2 -RESP PCR PANEL NOT DETECTED
--- NOTE | 2023-01-18 15:04 | CT Report ---
PROCEDURE: ABDOMEN/PELVIS W INDICATIONS: fevers for a month; upper abd pain CONTRAST: 100mL Omni 300 TECHNIQUE: After the administration of IV contrast, 5 mm thick sections acquired from the diaphragms to the symp hysis. 5 mm thick coronal and sagittal reformats were acquired. For radiation dose reduction, the f ollowing was used: automated exposure control, adjustment of mA and/or kV according to patient size. COMPARISON: None FINDINGS: Image quality: Excellent. Lung bases and heart: Unremarkable. Liver: No solid mass. Mild hepatic steatosis. Gallbladder and biliary tree: Unremarkable. Spleen: No splenomegaly. Pancreas: No pancreatic ductal dilation. Adrenals: No adrenal nodule. Kidneys and ureters: No hydronephrosis. No renal cystic lesion which requires follow up. No solid mas s. Bowel and peritoneum: No bowel distension. No pathologic free fluid. Moderate colonic stool. Prominen t diverticula are present without inflammatory change. Lymph nodes: No central or retroperitoneal adenopathy. Vessels: No infrarenal aortic aneurysm. PELVIS Reproductive organs: Unremarkable. Bladder: No abnormal wall thickening, accounting for underdistension. Pelvic lymph nodes: No pelvic adenopathy by size criteria. Bones: No aggressive osseous abnormality. Other: No significant ventral or inguinal hernia. IMPRESSION: No acute intra-abdominal or pelvic process. Prominent colonic stool suggestive of constipation.. Diverticulosis. Reviewed by: Deya Gonzalez MD on 01/18/2023 3:03 PM PDT Approved by: Deya Gonzalez MD on 01/18/2023 3:03 PM PDT Station ID: [id number]
[2023-01-18 15:12] VITALS: BP 133/63; O2SAT 100
[2023-01-18] MEDS ORDERED: iohexoL-300 100 ML VIAL IVP ONE (19:44)
== END 2023-01-18 15:31 | disposition home or self-care (01) ==
LOC: ED 10:33
DX: R50.9 Fever, unspecified (principal); R10.13 Epigastric pain; Z20.822 Contact with and (suspected) exposure to COVID-19
CPT/HCPCS: 36415; 74177; 80053; 81003; 83690; 85025; 87040; 87633; 99284; Q9967; 81001; 87086